=== PATIENT | male | born 1995 ===

== ENCOUNTER 2018-01-13 17:00 | Emergency (ER) | payer MEDICAID, OTHER ==
[2018-01-13 17:00] VITALS: BMI 18.7
[2018-01-13 17:10] VITALS: BP 115/70; PULSE 70; RESP 16; TEMP 98.4; O2SAT 100
--- NOTE | 2018-01-13 17:21 | C.PDOC ---
Time Seen by Provider: 01/13/18 17:10 Chief Complaint (Nursing): Dental Pain History Per: Patient, Family (Mother) Onset/Duration Of Symptoms: Days (3) Current Symptoms Are (Timing): Still Present Severity: Moderate Dental/Oral: 1 - decayed molar. pain. Quality: Positive for: "Pain" Additional History Per: Prior Records Past Medical History Reviewed: Historical Data, Nursing Documentation, Vital Signs Vital Signs: Last Vital Signs Temp 98.4 F 01/13/18 17:03 Pulse 70 01/13/18 17:03 Resp 16 01/13/18 17:03 BP 115/70 01/13/18 17:03 Pulse Ox 100 01/13/18 17:03 - Medical History PMH: No Chronic Diseases Family History: States: Unknown Family Hx - Social History Hx Tobacco Use: No Hx Alcohol Use: No Hx Substance Use: No - Immunization History Hx Tetanus Toxoid Vaccination: Yes (05/13/16) Hx Influenza Vaccination: No Hx Pneumococcal Vaccination: No Review Of Systems Except As Marked, All Systems Reviewed And Found Negative. Constitutional: Negative for: Fever ENT: Positive for: Mouth Pain. Negative for: Throat Pain Cardiovascular: Negative for: Chest Pain Respiratory: Negative for: Shortness of Breath Gastrointestinal: Negative for: Vomiting, Abdominal Pain Musculoskeletal: Negative for: Neck Pain Skin: Negative for: Rash Neurological: Negative for: Weakness, Numbness Physical Exam - Physical Exam Appears: Non-toxic, No Acute Distress Skin: Normal Color, Warm, Dry, No Rash Head: Atraumatic, Normacephalic Eye(s): bilateral: Normal Inspection, PERRL, EOMI Oral Mucosa: Moist, No Drooling, No Trismus Teeth: Caries, Tender To Palpation (left lower molar. Molar is almost completely gone, but some roots/fragments are still present) Gingiva: No Abscess Throat: Normal Neck: Normal ROM, No Midline Cervical Tenderness, No Step Off Deformity, Supple Extremity: Normal ROM Neurological/Psych: Oriented x3, Normal Speech, Normal Motor, Normal Sensation ED Course And Treatment O2 Sat by Pulse Oximetry: 100 Pulse Ox Interpretation: Normal Disposition Counseled Patient/Family Regarding: Diagnosis, Need For Followup, Rx Given - Disposition Disposition: HOME/ ROUTINE Disposition Time: 17:23 Condition: STABLE Additional Instructions: Follow up with a Dentist this week for further evaluation and treatment. Return to the ER if you develop fever, pus drainage, swelling, worsening of symptoms or if you have any other concerns. Prescriptions: Naproxen 375 mg PO BID PRN #20 tablet PRN Reason: Pain, Moderate (4-7) Penicillin VK [Penicillin VK Tab] 500 mg PO QID #28 tab Instructions: Dental Pain (DC) - Clinical Impression Clinical Impression: Dental caries, Pain, dental
== END 2018-01-13 17:46 | disposition home or self-care (01) ==
LOC: C.ER 17:00
DX: K02.9 Dental caries, unspecified (principal); K08.89 Other specified disorders of teeth and supporting structures